=== PATIENT | male | born 1975 | race Caucasian/White ===

== ENCOUNTER 2023-05-30 12:09 | Emergency (ER) | payer BC ==
[~2023-05-30] VITALS: Ht 165.1 cm; Wt 86.0 kg
[2023-05-30 12:57] VITALS: BP 115/72
== END 2023-05-30 13:05 | disposition home or self-care (01) | DRG 605 ==
LOC: EDBD 12:09 → ED 12:09
PROC: 0HQ0XZZ Repair Scalp Skin, External Approach (ICD-10-PCS; principal; 2023-05-30)
DX: S01.01XA Laceration without foreign body of scalp, initial encounter (principal); F17.200 Nicotine dependence, unspecified, uncomplicated; W20.8XXA Other cause of strike by thrown, projected or falling object, initial encounter; Z95.810 Presence of automatic (implantable) cardiac defibrillator

== ENCOUNTER 2023-06-08 15:02 | Emergency (ER) | payer BC ==
[~2023-06-08] VITALS: Ht 165.1 cm; Wt 90.0 kg
[2023-06-08 15:02] VITALS: BP 106/70
== END 2023-06-08 15:57 | disposition home or self-care (01) | DRG 950 ==
LOC: ED 15:02
DX: S01.01XD Laceration without foreign body of scalp, subsequent encounter (principal); X58.XXXD Exposure to other specified factors, subsequent encounter; Z95.810 Presence of automatic (implantable) cardiac defibrillator